=== PATIENT | male | born 1985 | race Caucasian/White ===

== ENCOUNTER 2024-06-08 18:38 | Emergency (ER) | payer MEDICAID, SELFPAY ==
[2024-06-08 18:41] VITALS: BP 152/106; PULSE 88; TEMP 36.4; O2SAT 99; BMI 26.4
[2024-06-08] MEDS: KETOROLAC TROMETHAMINE 60 MG/2 ML VIAL IM (18:57)
[2024-06-08] MEDS: DEXAMETHASONE SOD PHOS 10 MG/ML VIAL PO (18:57)
[2024-06-08] MEDS: ONDANSETRON 4 MG RAPDIS TABLET SL (18:57)
[2024-06-08] MEDS: ORPHENADRINE 60 MG/ 2 ML VIAL IM (18:57)
[2024-06-08 19:07] VITALS: BP 146/101
--- NOTE | 2024-06-08 19:29 | ED_ITS ---
HPI HPI - General Adult General Chief complaint: Headache Stated complaint: Headache Time Seen by Provider: 06/08/24 18:50 Source: patient Mode of arrival: walk-in History of Present Illness HPI narrative: 8-year-old male presents here with chief complaint of migraine headache. Patient has a history of migraine headaches. He states he has had similar headaches previously. Complains of mild nausea with photophobia. He took Tylenol prior to arrival. He states neurology had tried several other medications did not help. Last headache was approximately 3 weeks ago. He denies worst headache of his life sudden onset or thunderclap sensation. Related Data Home Medications ?Medication ?Instructions ?Recorded ?Confirmed duloxetine 60 mg capsule,delayed 60 mg PO DAILY 06/08/24 06/08/24 release mesalamine 1.2 gram tablet,delayed 4.8 g PO DAILY 06/08/24 06/08/24 release Allergies Allergy/AdvReac Type Severity Reaction Status Date / Time No Known Drug Allergies Allergy Verified 06/08/24 18:44 Opioid HPI Opioid Management Most Recent Opioid Data: No Data to Display Review of Systems ROS Narrative All Systems are negative except as noted/marked.All systems reviewed and otherwise negative PFSH PFSH Social History Little interest or pleasure in doing things: not at all Feeling down, depressed, or hopeless: not at all Exam Narrative Exam Narrative: Nurses note and vital signs reviewed and patient is not hypoxic. General: The patient appears well and in no apparent distress. Patient is resting comfortably on cart. Skin: Warm, dry, no pallor noted. There is no rash noted. Head: Normocephalic, atraumatic Eye: Normal conjunctiva, no drainage, EOMI. PERRL Ears, Nose, Mouth, and Throat: oral mucosa is moist. Nares patent. Mouth without vesicles. Ear canals patent. Tm's without Erythema Cardiovascular: Regular Rate and Rhythm Respiratory: Patient is in no distress, no accessory muscle use, lungs are clear to auscultation, no wheezing, rales or rhonchi Back: non-tender, no CVA tenderness bilaterally to percussion. GI: Normal bowel sounds, no tenderness to palpation, no masses appreciated. No rebound, guarding, or rigidity noted. Musculoskeletal: The patient has no evidence of calf tenderness, no pitting edema, symmetrical pulses noted bilaterally Neurological: A&O x4, normal speech Psychiatric: Cooperative Constitutional Vital Signs, click to edit/add: Last Vital Signs Temp 97.5 F L 06/08/24 18:41 Pulse 88 06/08/24 18:41 Resp 18 06/08/24 18:41 BP 146/101 H 06/08/24 19:07 Pulse Ox 99 06/08/24 18:41 O2 Del Method Room Air 06/08/24 18:41 Course Vital Signs Vital signs: Vital Signs Temperature 97.5 F L 06/08/24 18:41 Pulse Rate 88 06/08/24 18:41 Respiratory Rate 18 06/08/24 18:41 Blood Pressure 152/106 H 06/08/24 18:41 Pulse Oximetry 99 06/08/24 18:41 Oxygen Delivery Method Room Air 06/08/24 18:41 Temperature 97.5 F L 06/08/24 18:41 Pulse Rate 88 06/08/24 18:41 Respiratory Rate 18 06/08/24 18:41 Blood Pressure 146/101 H 06/08/24 19:07 Pulse Oximetry 99 06/08/24 18:41 Oxygen Delivery Method Room Air 06/08/24 18:41 Medical Decision Making MDM Narrative Medical decision making narrative: Here chief complaint migraine headache. Typical migraine headache presentation for him. Took Tylenol prior to arrival. Patient was medicated here with Toradol Decadron and Zofran. His symptoms did began to alleviate. Patient was to be discharged home. He sees neurology Dr. Singh. He will follow-up with him in the next week or 2. Patient agrees with plan of care. Reasons to return to the emergency room were discussed. Differential Diagnosis Differential Diagnosis: , Migraine, headache Medical Records Medical records reviewed: Yes I reviewed the patient's medical records Discharge Plan Discharge Chief Complaint: Headache Clinical Impression: Migraine Patient Disposition: Home, Self-Care Time of Disposition Decision: 19:28 Condition: Good Prescriptions / Home Meds: No Action duloxetine 60 mg capsule,delayed release(DR/EC) 60 mg PO DAILY mesalamine 1.2 gram tablet,delayed release (DR/EC) 4.8 g PO DAILY Print Language: [place] Instructions: Migraine Headache (ED) Additional Instructions: Follow up with [facility] Referrals: NETO ALVES [Primary Care Provider] - 1 week
[2024-06-08 19:33] VITALS: BP 129/100
== END 2024-06-08 19:35 | disposition home or self-care (01) ==
PROVIDERS: Emergency Provider Emergency Medicine; PCP Family Medicine
DX: G43.909 Migraine, unspecified, not intractable, without status migrainosus (principal)
CPT/HCPCS: 96372; 99285; J1100; J1885; J2360; Q0162